=== PATIENT | male | born 1965 | race Caucasian/White ===

== ENCOUNTER 2016-07-08 15:42 | Emergency (ER) | payer OTHER ==
[~2016-07-08] VITALS: Ht 185.4 cm; Wt 110.4 kg
[~2016-07-08 15:42] MED LIST: ASCORBIC ACID500 M3 PO; ASPIRIN325 MG PO; BACTRIM,SEPT1 TABLET PO; CALCIUM CARBON650 MG PO; CLINDAMYCIN HC300 MG PO; COLACE100 MG PO; COUMADIN7.5 MG PO; CYANOCOBALAM1000 MCG PO; DULCOLAX10 MG PR; ENOXAPARIN30 MG/0.3 SC; ERGOCALCIF50000 UNIT PO; FAMOTIDINE20 MG IV; FERROUS SULFAT325 MG PO; FOLIC ACID1 MG PO; FORTAMET1000 M1 PO; GABAPENTIN300 MG PO; GABAPENTIN600 MG PO; HUMALOG100 UNIT/1 SC; KEFLEX500 MG PO; LANTUS 10100 UNITS/ SC; LEVOFLOXACIN750 MG PO; LIPITOR40 MG PO; METAXALONE800 MG PO; NORCO 5/3251 TABLET PO; NOVOLOG PE100 UNITS/ SC; OXYCODONE HCL15 MG PO; OXYCONTIN20 MG PO; OXYCONTIN30 MG PO; POLYETHYLENE GL17 GM PO; PRAVASTATIN SOD40 MG PO; ROBAXIN500 MG PO; SENNA PLUS TAB1 EACH PO; SYNTHROID112 MCG PO; TRAZODONE HCL50 MG PO; TYLENOL EXTRA500 MG PO; VITAMIN D22000 UNIT PO; XANAX0.5 MG PO
[2016-07-08 16:40] LABS: HEMATOCRIT 40.2 % (38.0-50.0); MCH 29.9 PG (29.0-34.0); MCHC 34.6 G/DL (30.0-36.0); MCV 86.5 FL (86-99); MEAN PLAT.VOLUME 10.4 uM^3 (9.0-12.4); PLATELET COUNT 197 K/uL (156-360); RBC DIS.WIDTH-CV 13.3 % (11.8-14.6); RBC DIS.WIDTH-SD 40.7 % (39-53); RED BLOOD COUNT 4.65 M/uL (4.00-5.50); WHITE BLOOD COUNT 7.3 K/uL (4.1-10.2)
[2016-07-08 16:49] LABS: CHLORIDE 103 mEq/L (99-109); POTASSIUM 4.1 mEq/L (3.7-5.4); SODIUM 134 mEq/L (136-147)
[2016-07-08 16:51] LABS: GLUCOSE 292 mg/dL (70-99)
[2016-07-08 16:52] LABS: ANION GAP 10 MEQ/L (2-14)
[2016-07-08 16:55] LABS: GFR ESTIMATE (CALCULATED) > 59 mL/min/
[2016-07-08 16:56] LABS: UREA NITROGEN (BUN) 25 mg/dL (9-23)
[2016-07-08 17:02] LABS: TROP-I INTERPRETATION NEGATIVE; TROPONIN-I < 0.01 ng/mL (0.0-0.30)
[2016-07-08 18:13] LABS: ADD MIUA? NO; BILIRUBIN NEGATIVE; BLOOD NEGATIVE; COLOR YELLOW ((YELLOW)); GLUCOSE (STRIP) NEGATIVE; KETONES NEGATIVE; LEUKOCYTES NEGATIVE; NITRITE NEGATIVE; PROTEIN (STRIP) NEGATIVE; SPECIFIC GRAVITY 1.021 (1.000-1.030); UCUL ADDED? NO; UROBILINOGEN 0.2 MG/DL (0.2-1.0)
[2016-07-08 20:47] VITALS: BP 156/96
== END 2016-07-08 20:47 | disposition home or self-care (01) ==
LOC: EME 15:42
PROVIDERS: Physician Assistant
DX: M79.604 Pain in right leg (principal); E11.40 Type 2 diabetes mellitus with diabetic neuropathy, unspecified
CPT/HCPCS: 73552; 73630; 80048; 81003; 83605; 84484; 85027; 87040; 93005; 93971; 99281; 99284; J3010

== ENCOUNTER → 2016-10-02 | Outpatient (CLI) | payer OTHER ==
[~2016-10-02] VITALS: Ht 185.4 cm; Wt 112.5 kg
[~2016-10-02] MED LIST changes: +MIRALAX255 GM PO
[2016-10-02 08:42] LABS: POINT-OF-CARE METER ID UU13113694
[2016-10-02 09:29] LABS: POINT-OF-CARE METER ID UU13113819
== END | disposition home or self-care (01) ==
LOC: AMB 07:20
PROVIDERS: Internal Medicine
PROC: 0DBL8ZX Excision of Transverse Colon, Via Natural or Artificial Opening Endoscopic, Diagnostic (ICD-10-PCS; principal; 2016-10-02)
DX: Z12.11 Encounter for screening for malignant neoplasm of colon (principal); D12.3 Benign neoplasm of transverse colon; K57.30 Diverticulosis of large intestine without perforation or abscess without bleeding; F41.9 Anxiety disorder, unspecified; E11.9 Type 2 diabetes mellitus without complications; E78.5 Hyperlipidemia, unspecified; E03.9 Hypothyroidism, unspecified; G62.9 Polyneuropathy, unspecified; E55.9 Vitamin D deficiency, unspecified; Z86.711 Personal history of pulmonary embolism; Z79.01 Long term (current) use of anticoagulants; Z79.82 Long term (current) use of aspirin; Z79.4 Long term (current) use of insulin; Z79.84 Long term (current) use of oral hypoglycemic drugs; Z62.810 Personal history of physical and sexual abuse in childhood; Z87.891 Personal history of nicotine dependence
CPT/HCPCS: 82948; 88305

== ENCOUNTER 2017-03-18 16:02 | Emergency (ER) | payer OTHER ==
[~2017-03-18] VITALS: Ht 185.4 cm; Wt 107.7 kg
[2017-03-18 19:23] LABS: HEMATOCRIT 39.1 % (38.0-50.0); MCH 30.4 PG (29.0-34.0); MCV 86.9 FL (86-99); MEAN PLAT.VOLUME 10.2 uM^3 (9.0-12.4); PLATELET COUNT 201 K/uL (156-360); RBC DIS.WIDTH-CV 12.5 % (11.8-14.6); RBC DIS.WIDTH-SD 39.3 % (39-53); WHITE BLOOD COUNT 6.1 K/uL (4.1-10.2)
[2017-03-18 19:28] LABS: PROTHROMBIN TIME 11.8 SEC (10.2-12.9)
[2017-03-18 19:31] LABS: CHLORIDE 100 mEq/L (99-109); POTASSIUM 3.9 mEq/L (3.7-5.4); PTT 27.8 SEC (25-37); SODIUM 132 mEq/L (136-147)
[2017-03-18 19:34] LABS: GLUCOSE 361 mg/dL (70-99)
[2017-03-18 19:35] LABS: ANION GAP 10 MEQ/L (2-14)
[2017-03-18 19:36] LABS: TOTAL BILIRUBIN 0.5 mg/dL (0.0-1.0)
[2017-03-18 19:37] LABS: ALKALINE PHOSPHATASE 103 IU/L (3-129); GFR ESTIMATE (CALCULATED) > 59 mL/min/
[2017-03-18 19:38] LABS: UREA NITROGEN (BUN) 15 mg/dL (9-23)
[2017-03-18 20:01] LABS: TROP-I INTERPRETATION NEGATIVE; TROPONIN-I 0.01 ng/mL (0.0-0.30)
[2017-03-18 21:10] LABS: POINT-OF-CARE METER ID UU13113702
[2017-03-18] MEDS ORDERED: ATARAX,VISTARIL50 MG PO (21:46)
[2017-03-18 22:08] VITALS: BP 150/90
== END 2017-03-18 22:09 | disposition home or self-care (01) ==
LOC: EME 16:02
PROVIDERS: Nurse Practitioner Family; Physician Assistant
DX: R21 Rash and other nonspecific skin eruption (principal); E11.65 Type 2 diabetes mellitus with hyperglycemia; G89.29 Other chronic pain; M25.561 Pain in right knee; E78.5 Hyperlipidemia, unspecified; F32.9 Major depressive disorder, single episode, unspecified; Z79.4 Long term (current) use of insulin; Z86.718 Personal history of other venous thrombosis and embolism; Z87.442 Personal history of urinary calculi
CPT/HCPCS: 71020; 73564; 80053; 82948; 83605; 84484; 85027; 85610; 85730; 93005; 93971; 99281; 99284; J7030; Q0177

== ENCOUNTER 2017-04-16 18:03 | Inpatient (IN) | payer OTHER ==
[~2017-04-16] VITALS: Ht 185.4 cm; Wt 106.0 kg
[~2017-04-16 18:03] MED LIST changes: +ATARAX,VISTARIL50 MG PO
[2017-04-16 20:25] LABS: BASOPHIL COUNT 0.1 K/uL (0-0.1); EOSINOPHIL (%) 2.4 % (0-5); EOSINOPHIL COUNT 0.2 K/uL (0-0.3); HEMATOCRIT 41.9 % (38.0-50.0); IMMATURE GRANULOCYTE (%) 0.5 % (0.0-0.7); IMMATURE GRANULOCYTE COUNT 0.1 K/uL; INSTRUMENT ABS NEUTROPHIL CT 4.7 K/uL; LYMPHOCYTE COUNT 4.2 K/uL (1.0-2.8); MCH 29.7 PG (29.0-34.0); MCHC 34.1 G/DL (30.0-36.0); MCV 87.1 FL (86-99); MEAN PLAT.VOLUME 10.6 uM^3 (9.0-12.4); MONOCYTE (%) 4.9 % (3-12); MONOCYTE COUNT 0.5 K/uL (0-0.8); NEUTROPHIL (%) 48.4 % (45-76); NEUTROPHIL COUNT 4.7 K/uL (1.8-6.4); PLATELET COUNT 212 K/uL (156-360); RBC DIS.WIDTH-CV 12.3 % (11.8-14.6); RBC DIS.WIDTH-SD 39.4 % (39-53); RED BLOOD COUNT 4.81 M/uL (4.00-5.50); WHITE BLOOD COUNT 9.7 K/uL (4.1-10.2)
[2017-04-16 20:32] LABS: CHLORIDE 96 mEq/L (99-109); POTASSIUM 4.2 mEq/L (3.7-5.4); SODIUM 129 mEq/L (136-147)
[2017-04-16 20:35] LABS: ANION GAP 10 MEQ/L (2-14)
[2017-04-16 20:38] LABS: GFR ESTIMATE (CALCULATED) 42 mL/min/; UREA NITROGEN (BUN) 21 mg/dL (9-23)
[2017-04-16 20:46] LABS: GLUCOSE 613 mg/dL (70-99)
[2017-04-16 21:10] LABS: TOTAL BILIRUBIN 0.5 MG/DL (0.0-1.0)
[2017-04-16 21:11] LABS: ALKALINE PHOSPHATASE 99 IU/L (3-129)
[2017-04-16] MEDS ORDERED: NEURONTIN300 MG PO (21:12)
[2017-04-16] MEDS ORDERED: ATARAX,VISTARIL25 MG PO (21:15)
[2017-04-16] MEDS ORDERED: LO-DOSE ASPIRIN81 M1 PO (21:15)
[2017-04-16] MEDS ORDERED: KENALOG,ARISTOC80 GM TP (21:15)
[2017-04-16 21:29] LABS: TROP-I INTERPRETATION NEGATIVE; TROPONIN-I < 0.01 ng/mL (0.0-0.30)
[2017-04-16 21:50] LABS: CREATINE KINASE 43 IU/L (1-294)
[2017-04-16 22:16] LABS: POINT-OF-CARE METER ID UU13113747
[2017-04-16 22:59] LABS: Estimated Average Glucose 326 mg/dL (70-123)
[2017-04-17 03:11] LABS: ADD MIUA? NO; BILIRUBIN NEGATIVE; BLOOD NEGATIVE; COLOR STRAW ((YELLOW)); GLUCOSE (STRIP) >=500; KETONES 5; LEUKOCYTES NEGATIVE; NITRITE NEGATIVE; PROTEIN (STRIP) NEGATIVE; SPECIFIC GRAVITY 1.008 (1.000-1.030); UCUL ADDED? NO; UROBILINOGEN 0.2 MG/DL (0.2-1.0)
[2017-04-17 06:07] LABS: POINT-OF-CARE METER ID UU13113725
[2017-04-17 06:13] LABS: HEMATOCRIT 35.2 % (38.0-50.0); MCH 29.4 PG (29.0-34.0); MCHC 34.1 G/DL (30.0-36.0); MCV 86.3 FL (86-99); MEAN PLAT.VOLUME 10.5 uM^3 (9.0-12.4); PLATELET COUNT 158 K/uL (156-360); RBC DIS.WIDTH-CV 12.1 % (11.8-14.6); RBC DIS.WIDTH-SD 38.5 % (39-53); RED BLOOD COUNT 4.08 M/uL (4.00-5.50); WHITE BLOOD COUNT 6.7 K/uL (4.1-10.2)
[2017-04-17 06:16] LABS: ANION GAP 5 MEQ/L (2-14); CHLORIDE 105 MEQ/L (99-109); GLUCOSE 326 mg/dL (70-99); POTASSIUM 4.1 MEQ/L (3.7-5.4); SAMPLE HEMOLYSIS CHECK 0; SAMPLE ICTERIC CHECK 0; SAMPLE LIPEMIA CHECK 0; UREA NITROGEN (BUN) 19 mg/dL (9-23)
[2017-04-17 06:19] LABS: GFR ESTIMATE (CALCULATED) > 59 mL/min/; SODIUM 136 MEQ/L (136-147)
[2017-04-17 07:10] VITALS: BP 127/84
[2017-04-17 12:18] LABS: POINT-OF-CARE METER ID UU13113725
[2017-04-17 15:56] VITALS: BP 115/72
[2017-04-17 16:08] LABS: POINT-OF-CARE METER ID UU13113725
[2017-04-17 21:32] LABS: POINT-OF-CARE METER ID UU13113725
[2017-04-18 00:16] VITALS: BP 164/83
[2017-04-18 06:19] LABS: POINT-OF-CARE METER ID UU13113725
[2017-04-18 06:28] LABS: BASOPHIL COUNT 0.1 K/uL (0-0.1); EOSINOPHIL (%) 3.5 % (0-5); EOSINOPHIL COUNT 0.3 K/uL (0-0.3); HEMATOCRIT 35.7 % (38.0-50.0); IMMATURE GRANULOCYTE (%) 0.5 % (0.0-0.7); INSTRUMENT ABS NEUTROPHIL CT 3.1 K/uL; MCH 29.4 PG (29.0-34.0); MCHC 33.3 G/DL (30.0-36.0); MCV 88.1 FL (86-99); MEAN PLAT.VOLUME 10.4 uM^3 (9.0-12.4); MONOCYTE (%) 6.8 % (3-12); MONOCYTE COUNT 0.6 K/uL (0-0.8); NEUTROPHIL (%) 38.8 % (45-76); NEUTROPHIL COUNT 3.1 K/uL (1.8-6.4); PLATELET COUNT 158 K/uL (156-360); RBC DIS.WIDTH-CV 12.5 % (11.8-14.6); RBC DIS.WIDTH-SD 40.8 % (39-53); RED BLOOD COUNT 4.05 M/uL (4.00-5.50); WHITE BLOOD COUNT 8.1 K/uL (4.1-10.2)
[2017-04-18 06:51] LABS: ALKALINE PHOSPHATASE 73 IU/L (3-129); ANION GAP 4 MEQ/L (2-14); CHLORIDE 106 MEQ/L (99-109); GFR ESTIMATE (CALCULATED) > 59 mL/min/; POTASSIUM 4.2 MEQ/L (3.7-5.4); SAMPLE HEMOLYSIS CHECK 0; SAMPLE ICTERIC CHECK 0; SAMPLE LIPEMIA CHECK 0; SODIUM 138 MEQ/L (136-147); UREA NITROGEN (BUN) 14 mg/dL (9-23)
[2017-04-18 06:52] LABS: GLUCOSE 130 mg/dL (70-99); TOTAL BILIRUBIN 0.3 MG/DL (0.0-1.0)
[2017-04-18 07:20] VITALS: BP 158/80
[2017-04-18] MEDS ORDERED: DOXYCYCLINE HY100 M3 PO (08:06)
[2017-04-18 10:57] LABS: POINT-OF-CARE METER ID UU13113725
[2017-04-19 15:20] LABS: Rickettsia (RMSF) IgG Not Detected (Not Detected); Rickettsia (RMSF) IgM Not Detected (Not Detected)
== END 2017-04-18 11:48 | disposition home or self-care (01) | DRG 638 ==
LOC: EME 18:03 → 5EAST 23:00 → EDOF 23:00 → ENRESERV 23:02 → 5EAST 04-17 00:52 → ENPENDDIS 04-18 → 5EAST 04-18 11:48
PROVIDERS: Hospitalist; Nurse Practitioner Adult Health; Physician Assistant
DX: E11.65 Type 2 diabetes mellitus with hyperglycemia (principal); E66.9 Obesity, unspecified; Z68.30 Body mass index [BMI] 30.0-30.9, adult; E03.9 Hypothyroidism, unspecified; E11.42 Type 2 diabetes mellitus with diabetic polyneuropathy; E78.00 Pure hypercholesterolemia, unspecified; F41.9 Anxiety disorder, unspecified; G89.29 Other chronic pain; I10 Essential (primary) hypertension; L29.9 Pruritus, unspecified; L73.9 Follicular disorder, unspecified; Z79.4 Long term (current) use of insulin; Z86.711 Personal history of pulmonary embolism; Z86.718 Personal history of other venous thrombosis and embolism; Z89.412 Acquired absence of left great toe; E87.1 Hypo-osmolality and hyponatremia
CPT/HCPCS: 80048; 80053; 80076; 81003; 82010; 82550; 82800; 82948; 83036; 84443; 84484; 85025; 85027; 85651; 86038; 86140; 86757 90; 87040; 93005; 99281; 99285; J1650; J1815; J7030; Q0177